=== PATIENT | male | born 1995 | race African-American/Black ===

== ENCOUNTER 2020-07-22 21:24 | Emergency (ER) | payer SELFPAY ==
[2020-07-23] MEDS ORDERED: Ketorolac Tromethamine 30 MG/ML VIAL ONE (09:48)
== END 2020-07-22 23:02 | disposition left against medical advice (07) ==
LOC: CSHERS 21:24
DX: Z53.21 Procedure and treatment not carried out due to patient leaving prior to being seen by health care provider (principal)
CPT/HCPCS: J1885

== ENCOUNTER 2020-07-23 08:31 | Emergency (ER) | payer SELFPAY ==
[2020-07-23 18:20] LABS: SARS-CoV-2 PCR by NAA Not Detected (NotDetected)
== END 2020-07-23 12:40 | disposition home or self-care (01) ==
LOC: CSHERS 08:31
DX: B34.9 Viral infection, unspecified (principal); Z20.822 Contact with and (suspected) exposure to COVID-19; F17.210 Nicotine dependence, cigarettes, uncomplicated
CPT/HCPCS: 87635; 87804; 99283; U0003; U0005